=== PATIENT | male | born 1965 | race Caucasian/White ===

== ENCOUNTER 2016-10-30 23:50 | Emergency (ER) | payer SELFPAY ==
[~2016-10-30] VITALS: Ht 167.6 cm; Wt 76.0 kg
[2016-10-30 23:52] VITALS: Ht 167.6 cm; Wt 76.0 kg
[2016-10-31] MEDS ORDERED: CEFAZOLIN 1 GM INJ IM ONE (00:30)
[2016-10-31] MEDS ORDERED: DIPHTH/TET/ACEL PERTUSS (ADULT) 0.5 ML VIAL IM* ONE (00:30)
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
[2016-10-31] MEDS ORDERED: CEPH-443 PO (01:06)
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
[2016-10-31 01:22] VITALS: BP 138/88; PULSE 78; RESP 20; TEMP 97.9
== END 2016-10-31 01:23 | disposition home or self-care (01) ==
LOC: E/R 23:50
DX: S41.101A Unspecified open wound of right upper arm, initial encounter (principal); W34.00XA Accidental discharge from unspecified firearms or gun, initial encounter; Y92.9 Unspecified place or not applicable; Z87.891 Personal history of nicotine dependence; Z23 Encounter for immunization
CPT/HCPCS: 73060; 90715; J0690